=== PATIENT | male | born 1965 | race Caucasian/White ===

== ENCOUNTER → 2025-01-19 09:02 | Outpatient (REF) | payer OTHER, SELFPAY | LOC: RCS 09:02 | PROVIDERS: ATTENDING PHYSICIAN Nuclear Medicine Nuclear Cardiology; FAMILY PHYSICIAN Family Medicine | DX: R07.9 Chest pain, unspecified (principal); R94.31 Abnormal electrocardiogram [ECG] [EKG]; I49.8 Other specified cardiac arrhythmias; I49.3 Ventricular premature depolarization; E78.2 Mixed hyperlipidemia; R03.0 Elevated blood-pressure reading, without diagnosis of hypertension; R01.1 Cardiac murmur, unspecified | CPT/HCPCS: 93306 ==

== ENCOUNTER → 2025-02-02 08:54 | Outpatient (REF) | payer OTHER, SELFPAY ==
--- NOTE | 2025-02-02 10:14 | CARDSERVDEF ---
Echocardiogram with Definity completed after protocol screening completed. Allergies verified.
Patent IV site: __Rt AC___
IV site flushed with 0.9% NaCl pre and post administration.
Diluted bolus method utilized to enhance visualization of ventricular rosales.
Total volume given: __3.0__ mL
Patient tolerated all procedures well without complications.
== END ==
LOC: RCS 08:54
PROVIDERS: ATTENDING PHYSICIAN Nuclear Medicine Nuclear Cardiology; FAMILY PHYSICIAN Family Medicine
DX: E78.2 Mixed hyperlipidemia (principal); R94.31 Abnormal electrocardiogram [ECG] [EKG]; I49.8 Other specified cardiac arrhythmias; I49.3 Ventricular premature depolarization; R03.0 Elevated blood-pressure reading, without diagnosis of hypertension; R01.1 Cardiac murmur, unspecified
CPT/HCPCS: 93017; 93350; Q9957